=== PATIENT | male | born 1965 | race Caucasian/White ===

== ENCOUNTER → 2017-03-21 15:22 | Outpatient (CLI) | payer OTHER | END | disposition home or self-care (01) | LOC: LAB 15:22 | DX: E11.9 Type 2 diabetes mellitus without complications (principal) ==

== ENCOUNTER → 2017-03-21 | Outpatient (CLI) | payer OTHER | END | disposition home or self-care (01) | LOC: EKG 15:27 | DX: E11.9 Type 2 diabetes mellitus without complications (principal) ==

== ENCOUNTER 2017-11-29 10:07 | Emergency (ER) | payer OTHER ==
[~2017-11-29] VITALS: Ht 182.9 cm; Wt 95.7 kg
== END 2017-11-29 11:12 | disposition home or self-care (01) ==
LOC: ER 10:07
DX: S01.81XA Laceration without foreign body of other part of head, initial encounter (principal); S01.21XA Laceration without foreign body of nose, initial encounter; W18.39XA Other fall on same level, initial encounter; Y93.89 Activity, other specified; Y92.098 Other place in other non-institutional residence as the place of occurrence of the external cause; Y99.8 Other external cause status

== ENCOUNTER → 2017-12-08 | Emergency (ER) | payer OTHER ==
[~2017-12-08] VITALS: Ht 182.9 cm; Wt 94.8 kg
[~2017-12-08] MED LIST: FORTAMET500 MG
== END | disposition home or self-care (01) ==
LOC: ER 10:31
DX: Z53.20 Procedure and treatment not carried out because of patient's decision for unspecified reasons (principal)

== ENCOUNTER 2019-03-29 10:29 | Outpatient (CLI) | payer OTHER | END 2019-03-29 11:00 | disposition home or self-care (01) | LOC: RAD 10:29 | DX: K42.9 Umbilical hernia without obstruction or gangrene (principal); M54.5 Low back pain; M54.6 Pain in thoracic spine; E11.65 Type 2 diabetes mellitus with hyperglycemia; Z13.6 Encounter for screening for cardiovascular disorders ==

== ENCOUNTER 2021-06-03 09:35 | Outpatient (CLI) | payer OTHER | END 2021-06-03 09:49 | disposition home or self-care (01) | LOC: LAB 09:35 | DX: E03.8 Other specified hypothyroidism (principal); I10 Essential (primary) hypertension; N39.0 Urinary tract infection, site not specified; N41.0 Acute prostatitis; A64 Unspecified sexually transmitted disease; E78.5 Hyperlipidemia, unspecified ==

== ENCOUNTER 2021-06-17 08:37 | Outpatient (CLI) | payer OTHER | END 2021-06-22 15:03 | disposition home or self-care (01) | LOC: MRI → SONOGRAMA 08:37 | PROVIDERS: ATTEND Internal Medicine Endocrinology, Diabetes & Metabolism | DX: E04.1 Nontoxic single thyroid nodule (principal) ==